=== PATIENT | male | born 1985 | race Asian ===

== ENCOUNTER 2025-01-06 14:31 | Outpatient (REF) | payer OTHER, SELFPAY ==
--- NOTE | ~2025-01-06 | US_ITS ---
EXAMINATION: US ABDOMEN COMPLETE CLINICAL INFORMATION: CHERY. COMPARISON: None available. TECHNIQUE: Real-time ultrasound of the abdomen using grayscale technique. FINDINGS: PANCREAS: No peripancreatic fluid collection. ABDOMINAL AORTA: The proximal, mid, and distal segments are normal in caliber. INFERIOR VENA CAVA: Visualized portions are normal. LIVER: Liver measures 15 cm by computer engineering technologist. Coarse echotexture. No nodular surface. No solid or cystic lesion detected by the technologist. No intrahepatic biliary ductal dilatation. Main portal vein is patent with normal hepatopedal flow direction. GALLBLADDER: Fluid-filled. No pericholecystic fluid collection or gallbladder wall thickening. COMMON BILE DUCT: 2 mm. RIGHT KIDNEY: 11 cm. Normal echotexture. Normal renal cortical thickness. No hydronephrosis. No solid or cystic lesion detected. . LEFT KIDNEY: 11 cm. Normal echotexture. Normal renal cortical thickness. No hydronephrosis. No solid or cystic lesion detected. . SPLEEN: 11 cm. No focal lesion.. FREE FLUID: None. US/US abdomen complete IMPRESSION: Probable mild hepatic steatosis. No cholelithiasis or choledocholithiasis. No hydronephrosis. No ascites. Electronically signed by: Praful Milner MD 01/06/2025 03:19 PM EDT
--- OUTSIDE RECORDS SUMMARY | 2025-01-06 14:53 | XMS_ITS | Clinical Summary ---
Author Organization Shawna Cabral [facility] Address [address] [place] [address] Care Team Providers Care Partner Manager Name Role Phone Maria T Yuan MD Unavailable [phone] Dev Sosa MD Unavailable [phone] Maria T Yuan MD Primary Care Provider [phone] Medications ergocalciferol (DRISDOL) 1,250 mcg (50,000 unit) capsule 1 capsule(s) by mouth once a week 12 capsule 0 09/25/2014 Active Encounters Date Type Department Care Team Description 2024 Lab Requisition [facility] [address], [place] [id number] Maria T Yuan MD Encounter for general adult medical examination without abnormal findings; Helicobacter pylori (H. pylori) as the cause of diseases classified elsewhere from Last 3 Months Immunizations Immunization Administration Dates Next Due COVID-19 Vaccine (Coolio) Original Formulation (prior to Jul 2021) 11/19/2020,10/29/2020 Social History Tobacco Use Types Packs/Day Years Used Date Smoking Tobacco: Never Assessed Sex and Gender Information Value Date Recorded Sex Assigned at Male 08/28/2023 1:20 AM EST Legal Sex Male 1:20 AM EST Gender Identity Male 08/28/2023 1:20 AM EST Sexual Orientation Not on file Last Filed Vital Signs Vital Sign Reading Time Taken Comments Blood Pressure - - Pulse - - Temperature - - Respiratory Rate - - Oxygen Saturation - - Inhaled Oxygen Concentration - - Weight 74.7 kg (164 lb 9.6 oz) 09/25/2014 12:00 AM EDT Legacy value: 164.6 Height - - Body Mass Index - - Plan of Treatment Health Maintenance Due Date Last Done Comments Blood Pressure 1987 Depression Screening 1991 COVID-19 Vaccine (3 - 2023-2 5 season) 2024 11/19/2020, 10/29/2020 Influenza Vaccine (Season Ended) 2025 DTaP,Tdap,and Td Vaccines (2 - Td or Tdap) 08/29/2032 08/29/2022 Hepatitis C Screening Completed 07/31/2015 Meningococcal B Vaccines Aged Out No longer eligible based on patient's age to complete this topic Meningococcal Vaccines Aged Out No lo nger eligible based on patient's age to complete this topic Pneumococcal Vaccine: Pediatrics (0 to 5 Years) and At-Risk Patients (6 to 64 Years) Aged Out No longer eligible b ased on patient's age to complete this topic Procedures Procedure Name Priority Date/Time Associated Diagnosis Comments IRON PROFILE Routine 2024 3:41 PM EDT Encounter for general adult medical examination without abnormal findings Helicobacter pylori (H. pylori) as the cause of diseases classified elsewhere CBC Routine 2024 3:41 PM EDT Encounter for general adult medical examination without abnormal findings Helicobacter pylori (H. pylori) as the cause of diseases classified elsewhere HEMOGLOBIN A1C Routine 2024 3:41 PM EDT Encounter for general adult medical examination without abnormal findings Helicobacter pylori (H. pylori) as the cause of diseases classified elsewhere COMPREHENSIVE METABOLIC PANEL Routine 2024 3:41 PM EDT Encounter for general adult medical examination without abnormal findings Helicobacter pylori (H. pylori) as the cause of diseases classified elsewhere LIPID PANEL Routine 2024 3:41 PM EDT Encounter for general adult medical examination without abnormal findings Helicobacter pylori (H. pylori) as the cause of diseases classified elsewhere CALCIUM Routine 2024 3:41 PM EDT Encounter for general adult medical examination without abnormal findings Helicobacter pylori (H. pylori) as the cause of diseases classified elsewhere ALBUMIN Routine 2024 3:41 PM EDT Encounter for general adult medical examination without abnormal findings Helicobacter pylori (H. pylori) as the cause of diseases classified elsewhere from Last 3 Months Results * (ABNORMAL) Iron Profile (2024 3:41 PM EDT) Iron,Serum/Plasm a 100 45 - 160 ug/dL 2024 9:44 PM EDT [facility] Transferrin 255 200 - 360 mg/dL 2024 9:44 PM EDT [facility] TIBC, Calculated 332 ug/dL 12/09/19 9:44 PM EDT [facility] Iron Saturation % 30 15 - 50 % 2024 9:44 PM EDT [facility] Ferritin 638(H) 30 - 400 ng/mL 2024 9:44 PM EDT [facility] Blood PERIPHERAL BLOOD SPECIMEN / Unknown 2024 3:41 PM EDT 2024 8:58 PM EDT us Maria T Yuan MD LAB BLOOD ORDERABLES Final Result [facility] [address] [place] [address], * (ABNORMAL) CBC (2024 3:41 PM EDT) WBC 11.39(H) 4.00 - 10.00 K/uL 2024 9:04 PM EDT [facility] RBC 5.45 4.60 - 6.10 M/uL 2024 9:04 PM EDT [facility] Hemoglobin 16.1 13.7 - 17.5 g/dL 2024 9:04 PM EDT [facility] Hematocrit 49.0 40.0 - 51.0 % 2024 9:04 PM EDT [facility] MCV 90 82 - 98 fL 2024 9:04 PM EDT [facility] MCH 29.5 26.0 - 32.0 pg 2024 9:04 PM EDT [facility] MCHC 32.9 32.0 - 37.0 g/dL 2024 9:04 PM EDT [facility] RDW 13.0 10.5 - 15.5 % 2024 9:04 PM EDT [facility] RDW-SD 42.6 35.1 - 46.3 fL 2024 9:04 PM EDT [facility] Platelet Count 191 150 - 400 K/uL 2024 9:04 PM EDT [facility] Nucleated RBC 0 <=0 #/100 WBC 2024 9:04 PM EDT [facility] Blood PERIPHERAL BLOOD SPECIMEN / Unknown 2024 3:41 PM EDT 2024 8:58 PM EDT us Maria T Yuan MD LAB BLOOD ORDERABLES Final Result [facility] [address] [place] [address], * Hemoglobin A1C (2024 3:41 PM EDT) Hemoglobin A1C 5.5 4.8 - 5.9 % 2024 9:18 PM EDT [facility] Comment:A1C between 5.7-6.4 if confirmed is considered prediabetes, and A1C >= 6.5 if confirmed is considered diabetes, according to the ADA. A1C treatment goals should be individualized. Estimated Average Glucose 2024 9:18 PM EDT [facility] Comment:Estimated average gl ucose is calculated from A1C using ADAG equation. Estimated Average Glucose 111 68 - 126 mg/dL 2024 9:18 PM EDT [facility] Blood PERIPHERAL BLOOD SPECIMEN / Unknown 2024 3:41 PM EDT 2024 8:58 PM EDT Maria T Yuan MD LAB BLOOD ORDERABLES Final Result Performing Organization Address City/[facility]/ZIP Co de Phone Number [facility] [address] [place] [address], [place] * Calcium (2024 3:41 PM EDT) Calcium 9.6 8.4 - 10.3 mg/dL 2024 9:36 PM EDT [facility] Blood PERIPHERAL BLOOD SPECIMEN / Unknown 2024 3:41 PM EDT 2024 8:58 PM EDT Maria T Yuan MD LAB BLOOD ORDERABLES Final Result Performing Organization Address City/[facility]/ZIP Co de Phone Number [facility] [address] [place] [address], [place] * Albumin (2024 3:41 PM EDT) Albumin, Blood 4.7 3.5 - 5.2 g/dL 2024 9:36 PM EDT [facility] Blood PERIPHERAL BLOOD SPECIMEN / Unknown 2024 3:41 PM EDT 2024 8:58 PM EDT Maria T Yuan MD LAB BLOOD ORDERABLES Final Result Performing Organization Address City/[facility]/ZIP Co de Phone Number [facility] [address] [place] [address]. [place] [address], [place] * (ABNORMAL) Lipid Panel (2024 3:41 PM EDT) Cholesterol 217(H) 0 - 199 mg/dL 2024 9:44 PM EDT [facility] Triglycerides 120 0 - 149 mg/dL 2024 9:44 PM EDT [facility] HDL Cholesterol 56 41 - 999 mg/dL 2024 9:44 PM EDT [facility] LDL Cholesterol 137(H) 0 - 129 mg/dL 2024 9:44 PM EDT [facility] Non-HDL Cholesterol 161 <190 mg/dL 2024 9:44 PM EDT [facility] Ratio Chol/HDL 3.9 2.0 - 5.0 2024 9:44 PM EDT [facility] Blood PERIPHERAL BLOOD SPECIMEN / Unknown 2024 3:41 PM EDT 2024 8:58 PM EDT us Maria T Yuan MD LAB BLOOD ORDERABLES Final Result [facility] [address] [place] [address], * (ABNORMAL) Comprehensive Metabolic Panel (2024 3:41 PM EDT) Sodium 144 135 - 147 mmol/L 2024 10:01 PM T [facility] Potassium 4.1 3.5 - 5.4 mmol/L 2024 10:01 PM T [facility] Chloride 102 96 - 108 mmol/L 2024 10:01 PM T [facility] Total CO2/Bicarbonate 26 22 - 32 mmol/L 2024 10:01 PM T [facility] Anion Gap 16 10 - 18 mmol/L 2024 10:01 PM T [facility] BUN 21(H) 6 - 20 mg/dL 2024 10:01 PM EDT [facility] Creatinine, Blood 1.10 0.50 - 1.20 mg/dL 2024 10:01 PM T [facility] Glucose, Blood 44(LL) 70 - 100 mg/dL 2024 10:01 PM T [facility] Comment:Verified by replicat e analysis Calcium 9.6 8.4 - 10.3 mg/dL 2024 10:01 PM T [facility] Total Protein 7.4 6.4 - 8.3 g/dL 2024 10:01 PM EDT [facility] Albumin, Blood 4.7 3.5 - 5.2 g/dL 2024 10:01 PM EDT [facility] Globulin Result 2.7 2.0 - 4.0 g/dL 2024 10:01 PM EDT [facility] AST (SGOT) 22 0 - 40 U/L 2024 10:01 PM EDT [facility] ALT (SGPT) 18 0 - 40 U/L 2024 10:01 PM EDT [facility] Alkaline Phosphatase 76 40 - 130 U/L 2024 10:01 PM EDT [facility] Total Bilirubin 0.7 0.0 - 1.5 mg/dL 2024 10:01 PM EDT [facility] Estimated GFR(CKD-EPI) 89 mL/min/BSA 2024 10:01 PM EDT [facility] Blood PERIPHERAL BLOOD SPECIMEN / Unknown 2024 3:41 PM EDT 2024 8:58 PM EDT us Maria T Yuan MD LAB BLOOD ORDERABLES Final Result Performing Organization Address City/State/[facility] Co de Phone Number [facility] [address] [place] [phone], from Last 3 Months Insurance [address] [place] [address] [facility] Care Teams Partner Manager Relationship Specialty Start Date End Date Maria T Yuan MD [address] [place] [id number] PCP - Insurance Assigned PCP 08/14/23 Maria T Yuan MD [address] [place] [id number] PCP - General Internal Medicine 10/09/24 Dev Sosa MD [address] [place] [id number] Nephrology 01/14/22
== END 2025-01-06 14:32 | disposition home or self-care (01) ==
LOC: HO.US 14:31
PROVIDERS: Visit Provider Internal Medicine Geriatric Medicine
DX: K75.81 Nonalcoholic steatohepatitis (NASH) (principal)
CPT/HCPCS: 76700

== ENCOUNTER → 2025-01-06 14:49 | Outpatient (BNV) | payer OTHER, SELFPAY | PROVIDERS: Visit Provider Radiology Diagnostic Radiology | DX: K75.81 Nonalcoholic steatohepatitis (NASH) (principal) | CPT/HCPCS: 76700 ==